=== PATIENT | female | born 1955 | race Caucasian/White ===

== ENCOUNTER → 2020-01-10 | Outpatient (CLI) | payer OTHER ==
[~2020-01-10] MED LIST: ALBU90OI INH; Acidophilus La100 GM; BUDE6HFA INH; Coq-10100 MG PO; DEXL60CA3 PO; Daily Multiple1 EACH PO; ERGO400; FISH1000 PO; Fiber Tabs625 MG PO; Glucophage1000 MG PO; LISI20 PO; MONT10T PO; ROSU5 PO; ZOLP12.5 PO; ZYRTEC10 M1 PO; Zegerid 40 MG1 EACH PO
[2020-01-14 14:08] LABS: HPV 16 Negative (Negative); HPV 18 Negative (Negative); HPV OTHER HR TYPES Negative (Negative)
== END | disposition home or self-care (01) ==
PROVIDERS: Advanced Practice Midwife
DX: Z01.419 Encounter for gynecological examination (general) (routine) without abnormal findings (principal)

== ENCOUNTER → 2020-02-28 | Outpatient (CLI) | payer OTHER | END | disposition home or self-care (01) | LOC: LAB SHORT 13:10 → PLD 13:10 | DX: C44.722 Squamous cell carcinoma of skin of right lower limb, including hip (principal) | CPT/HCPCS: 88305 ==

== ENCOUNTER → 2020-03-19 | Outpatient (CLI) | payer OTHER | END | disposition home or self-care (01) | LOC: LAB SHORT 07:23 → PLD 07:23 | DX: C44.722 Squamous cell carcinoma of skin of right lower limb, including hip (principal) | CPT/HCPCS: 88305 ==

== ENCOUNTER 2021-12-01 07:45 | Day surgery (SDC) | payer MEDICARE, BC ==
[~2021-12-01] VITALS: Ht 172.7 cm; Wt 88.4 kg
[2021-12-01] MEDS ORDERED: LOSA50 PO ×2 (08:21→08:23)
== END 2021-12-01 09:43 | disposition home or self-care (01) ==
LOC: ORSCSDS 07:45
PROVIDERS: Internal Medicine Gastroenterology
PROC: 0DBK8ZX Excision of Ascending Colon, Via Natural or Artificial Opening Endoscopic, Diagnostic (ICD-10-PCS; principal; 2021-12-01 09:00)
DX: Z12.11 Encounter for screening for malignant neoplasm of colon (principal); D12.2 Benign neoplasm of ascending colon; Z86.010 Personal history of colon polyps; Z80.0 Family history of malignant neoplasm of digestive organs; Z79.899 Other long term (current) drug therapy
CPT/HCPCS: 82947; 88305; J2704; J7120